=== PATIENT | female | born 1965 | race Caucasian/White ===

== ENCOUNTER 2024-04-24 07:32 | Day surgery (SDC) | payer OTHER ==
[~2024-04-24 07:32] MED LIST: Midazolam 1 MG/ML 2 ML SDV ONE; Propofol 200 MG/20 ML SDV ONE; fentaNYL 50 MCG/ML SDV ONE
[2024-04-24] MEDS: Sodium Chloride 0.9% 1,000 ML IV SCH (08:38)
[2024-04-24] MEDS ORDERED: Propofol 200 MG/20 ML SDV ONE (09:25)
== END 2024-04-24 11:01 | disposition home or self-care (01) ==
LOC: JP.SDS 07:32
PROVIDERS: ATTEND Surgery
DX: Z12.11 Encounter for screening for malignant neoplasm of colon (principal); D12.0 Benign neoplasm of cecum; Z86.0100 Personal history of colon polyps, unspecified
CPT/HCPCS: 45385; 88305; J2250; J2704; J3010; J7030; 00811-QZ